=== PATIENT | male | born 1990 | race Caucasian/White ===

== ENCOUNTER → 2016-06-17 | Outpatient (CLI) | payer OTHER ==
--- NOTE | 2016-06-17 11:03 | US ---
EXAMINATION TYPE: US abdomen complete DATE OF EXAM: 06/17/2016 10:10 AM COMPARISON: NONE CLINICAL HISTORY: RUQ Abd Pain R10.11. RUQ pain. EXAM MEASUREMENTS: Liver Length: 15.9 cm Gallbladder Wall: 0.2 cm CBD: 0.2 cm Spleen: 14.8 cm Right Kidney: 12.7 x 6.3 x 6.4 cm Left Kidney: 12.9 x 5.4 x 5.4 cm Pancreas: Obscured by bowel gas Liver: wnl Gallbladder: wnl Evidence for sonographic Umanzor's sign: neg CBD: wnl Spleen: enlarged Right Kidney: wnl Left Kidney: wnl Upper IVC: seen Abd Aorta: seen The liver is homogenous. The intrahepatic portion of the IVC and proximal abdominal aorta are within normal limits. There is no evidence of cholelithiasis. Common bile duct is unremarkable. The visu alized portions of the pancreas are homogenous. The spleen is unremarkable. Kidneys are symmetric a nd free of hydronephrosis. No renal lesions are seen. IMPRESSION: 1. Mild splenomegaly.
== END ==
LOC: RADUSWWP 09:44
PROVIDERS: ATTEND Family Medicine
DX: R16.1 Splenomegaly, not elsewhere classified (principal)
CPT/HCPCS: 76700

== ENCOUNTER → 2016-07-08 | Outpatient (CLI) | payer OTHER ==
--- NOTE | 2016-07-08 18:00 | NM ---
EXAMINATION TYPE: NM hepatobiliary w EF DATE OF EXAM: 07/08/2016 5:55 PM COMPARISON: NONE HISTORY: Right upper quadrant pain per order. Additional symptoms of epigastric pain per patient. TECHNIQUE: After the intravenous administration of 5.3 mCi Tc 99m Mebrofenin hepatobiliary scintigrap hy is performed. Immediate images post injection. FINDINGS: There is satisfactory initial accumulation of tracer by the liver. The gallbladder is visualized wit hin 90 minutes. The small bowel activity is noted within 15 minutes. At 90 minutes 8 ounces of oral ensure plus is given to mimic CCK and gallbladder ejection fraction is calculated at 80% %, not dominga ated from the normal range. Therefore there is no scintigraphic evidence of cystic or common bile du ct obstruction to suggest acute cholecystitis or gallbladder dyskinesia. IMPRESSION: Exam is within normal limits.
== END | disposition home or self-care (01) ==
LOC: RADNMMAIN 15:12
PROVIDERS: ATTEND Family Medicine
DX: R10.11 Right upper quadrant pain (principal)
CPT/HCPCS: 78226; A9537